=== PATIENT | female | born 1970 | race Caucasian/White ===

== ENCOUNTER 2017-11-30 13:18 | Observation (INO) | payer OTHER ==
[~2017-11-30] VITALS: Ht 160 cm; Wt 136.3 kg
[2017-11-30 13:24] VITALS: Ht 160 cm; Wt 136.3 kg
[2017-11-30 14:58] LABS: BASOPHIL % 0.2 % (0-2); PLATELET COUNT 273 x10^3mcL (130-400); RED CELL DISTRIBUTION WIDTH 14.5 % (11.5-14.5)
[2017-11-30 15:01] LABS: CALCIUM 8.5 mg/dL (8.5-10.1); CARBON DIOXIDE 27.2 mmol/L (21-32); CHLORIDE SERUM 98 mmol/L (98-107); CREATININE SERUM 0.7 mg/dL (0.6-1.0); GFR1 > 60 mL/min; GLUCOSE SERUM 91 mg/dL (74-106); SODIUM SERUM 136 mmol/L (136-145)
[2017-11-30 15:06] LABS: ALKALINE PHOSPHATASE 82 U/L (46-116); ALT/SGPT 19 U/L (14-59); AST/SGOT 13 U/L (15-37); BILIRUBIN TOTAL 0.4 mg/dL (0.20-1.00); TOTAL PROTEIN, SERUM 7.7 g/dL (6.4-8.2)
[2017-11-30 15:07] LABS: ALBUMIN 2.6 g/dL (3.4-5.0)
[2017-11-30 15:51] LABS: CREATINE KINASE 21 U/L (26-192)
[2017-11-30 16:19] LABS: CK-MB < 0.5 ng/mL (0-3.6)
[2017-11-30 17:10] LABS: microscopic required? YES; urine erythrocyte 1+ (NEGATIVE)
[2017-11-30] MEDS ORDERED: CARVEDILOL3.125 M1 PO (18:09)
[2017-11-30] MEDS ORDERED: METFORMIN HCL850 MG PO (18:09)
[2017-11-30] MEDS ORDERED: CENTRUM WOMEN1 EACH PO (18:10)
[2017-11-30] MEDS ORDERED: ASPIR 8181 MG PO (18:10)
[2017-11-30] MEDS ORDERED: INVOKANA300 MG PO (18:11)
[2017-11-30] MEDS ORDERED: COZAAR100 MG PO (18:11)
[2017-11-30] MEDS ORDERED: NOR10 PO (18:11)
[2017-11-30] MEDS ORDERED: RELION HUMUL100 U/M2 IJ (18:12)
[2017-11-30 18:38] LABS: MAGNESIUM 2.3 mg/dL (1.8-2.4); PHOSPHOROUS 3.7 mg/dL (2.5-4.9)
[2017-11-30 18:40] LABS: AMPHETAMINE QUAL UR NONE DETECTED (See below)
[2017-11-30] MEDS ORDERED: LEVEMIR100 U/M1 SQ (18:51)
[2017-11-30] MEDS ORDERED: VICTOZA6 MG/M1 SQ (18:52)
[2017-11-30 18:53] LABS: T3 TOTAL 0.74 ng/mL
[2017-11-30 19:02] LABS: FREE T4 1.19 ng/dL (0.76-1.46); FREE THYROXINE INDEX 2.1 ug/dL (1.4-4.5); T4(THYROXINE) 5.8 ug/dL (4.7-13.3)
[2017-11-30 19:30] LABS: TOTAL IRON BINDING CAPACITY 245 ug/dL (250-450)
[2017-11-30 19:35] LABS: IRON 30 ug/dL (50-170); RED BLOOD CELLS 3.27 M/mm3 (4.10-5.10)
[2017-11-30 22:24] VITALS: BP 127/73
[2017-11-30 22:42] VITALS: BP 149/71
[2017-12-01 00:47] VITALS: BP 149/71
[2017-12-01 06:14] VITALS: BP 124/59
[2017-12-01 06:20] LABS: PLATELET COUNT 245 x10^3mcL (130-400); RED CELL DISTRIBUTION WIDTH 14.2 % (11.5-14.5)
[2017-12-01 06:41] LABS: CALCIUM 8.5 mg/dL (8.5-10.1); CARBON DIOXIDE 23.5 mmol/L (21-32); CHLORIDE SERUM 102 mmol/L (98-107); CREATININE SERUM 0.6 mg/dL (0.6-1.0); GFR1 > 60 mL/min; GLUCOSE SERUM 92 mg/dL (74-106); MAGNESIUM 2.1 mg/dL (1.8-2.4); PHOSPHOROUS 3.1 mg/dL (2.5-4.9); POTASSIUM SERUM 3.5 mmol/L (3.5-5.1); SODIUM SERUM 139 mmol/L (136-145)
[2017-12-01 06:45] LABS: CHOLESTEROL 111 mg/dL (<200); CHOLESTEROL/HDL RATIO 11.1; HDL CHOLESTEROL 10 mg/dL (40-60); TRIGLYCERIDES 220 mg/dL (<150)
[2017-12-01 08:42] VITALS: BP 143/77
[2017-12-01 09:26] LABS: BAND NEUTROPHIL 4 % (0-10); BASOPHIL 0 % (0-2); MONOCYTE 3 % (0-7); SEGMENTED NEUTROPHILS 65 % (37-75)
[2017-12-01 09:28] LABS: PLATELET MORPHOLOGY PLATELETS NORMAL; rbc morphology (normal/abnorm) ABNORMAL (NORMAL)
[2017-12-01 13:10] VITALS: BP 127/67
[2017-12-01] MEDS ORDERED: LEVAQUIN750 MG PO (16:36)
[2017-12-01] MEDS ORDERED: CLEOCIN HCL300 MG PO (16:36)
[2017-12-01] MEDS ORDERED: LAC PO (16:37)
[2017-12-01 16:48] VITALS: BP 127/67
[2017-12-01 17:00] VITALS: BP 140/69
== END 2017-12-01 18:05 | disposition home or self-care (01) | DRG 177 ==
LOC: ED 13:18 → DU 17:54
PROVIDERS: Emergency Medicine; Family Medicine
DX: J69.0 Pneumonitis due to inhalation of food and vomit (principal); J96.01 Acute respiratory failure with hypoxia; N17.0 Acute kidney failure with tubular necrosis; E43 Unspecified severe protein-calorie malnutrition; Z68.43 Body mass index [BMI] 50.0-59.9, adult; E66.01 Morbid (severe) obesity due to excess calories; I10 Essential (primary) hypertension; E11.65 Type 2 diabetes mellitus with hyperglycemia; E11.51 Type 2 diabetes mellitus with diabetic peripheral angiopathy without gangrene; R82.4 Acetonuria; D64.9 Anemia, unspecified; Z79.4 Long term (current) use of insulin; Z79.82 Long term (current) use of aspirin; Z87.891 Personal history of nicotine dependence
CPT/HCPCS: 36600; 82962; 83880; 84439; 86788; 86789; 87804; G0378; J0456; J0696; J1644; J1815; J1956; J3490; J7030; J7050; Q0092; Q9967

== ENCOUNTER 2018-03-06 10:51 | Inpatient (IN) | payer OTHER ==
[~2018-03-06] VITALS: Ht 160 cm; Wt 134.4 kg
[~2018-03-06 10:51] MED LIST: ASPIR 8181 MG PO; CARVEDILOL3.125 M1 PO; CENTRUM WOMEN1 EACH PO; CLEOCIN HCL300 MG PO; COZAAR100 MG PO; INVOKANA300 MG PO; LAC PO; LEVAQUIN750 MG PO; LEVEMIR100 U/M1 SQ; METFORMIN HCL850 MG PO; NOR10 PO; RELION HUMUL100 U/M2 IJ; VICTOZA6 MG/M1 SQ
[2018-03-06 10:55] VITALS: Ht 160 cm; Wt 134.4 kg
[2018-03-06 12:03] LABS: CALCIUM 8.5 mg/dL (8.5-10.1); CARBON DIOXIDE 25.2 mmol/L (21-32); CHLORIDE SERUM 101 mmol/L (98-107); CREATININE SERUM 0.7 mg/dL (0.6-1.0); GFR1 > 60 mL/min; GLUCOSE SERUM 152 mg/dL (74-106); POTASSIUM SERUM 4.1 mmol/L (3.5-5.1); SODIUM SERUM 137 mmol/L (136-145)
[2018-03-06 12:08] LABS: ALBUMIN 3.7 g/dL (3.4-5.0); ALKALINE PHOSPHATASE 52 U/L (46-116); ALT/SGPT 22 U/L (14-59); AST/SGOT 20 U/L (15-37); BILIRUBIN TOTAL 0.8 mg/dL (0.20-1.00)
[2018-03-06 12:15] LABS: PLATELET COUNT 71 x10^3mcL (130-400); RED CELL DISTRIBUTION WIDTH 15.3 % (11.5-14.5)
[2018-03-06 12:18] LABS: TOTAL PROTEIN, SERUM 8.4 g/dL (6.4-8.2)
[2018-03-06] MEDS ORDERED: NOR5 PO (15:34)
[2018-03-06] MEDS ORDERED: VICTOZA6 MG/M1 SC (15:38)
[2018-03-06] MEDS ORDERED: TOUJEO MAX300 UNIT/1 SQ (15:38)
[2018-03-06 15:43] LABS: SEGMENTED NEUTROPHILS 8 % (37-75)
[2018-03-06 15:44] LABS: BAND NEUTROPHIL 3 % (0-10)
[2018-03-06 15:47] LABS: ATYPICAL LYMPH 28 %; MONOCYTE 28 % (0-7); MYELOCYTE 1 % (0-2)
[2018-03-06 15:48] LABS: PATH REVIEW for HEMA YES; PLATELET MORPHOLOGY PLATELETS DECREASED; rbc morphology (normal/abnorm) ABNORMAL (NORMAL)
[2018-03-06 16:07] VITALS: BP 162/82
[2018-03-06 19:00] VITALS: BP 146/82
[2018-03-06 21:13] VITALS: BP 107/65
[2018-03-07 05:43] VITALS: BP 126/65
[2018-03-07 06:27] LABS: ALKALINE PHOSPHATASE 45 U/L (46-116); ALT/SGPT 22 U/L (14-59); AST/SGOT 20 U/L (15-37); BILIRUBIN TOTAL 0.61 mg/dL (0.20-1.00); CALCIUM 8.2 mg/dL (8.5-10.1); CARBON DIOXIDE 25.1 mmol/L (21-32); CHLORIDE SERUM 104 mmol/L (98-107); CREATININE SERUM 0.6 mg/dL (0.6-1.0); GFR1 > 60 mL/min; GLUCOSE SERUM 116 mg/dL (74-106); POTASSIUM SERUM 3.5 mmol/L (3.5-5.1); SODIUM SERUM 139 mmol/L (136-145); TOTAL PROTEIN, SERUM 7.5 g/dL (6.4-8.2)
[2018-03-07 06:40] LABS: ALBUMIN 3.2 g/dL (3.4-5.0)
[2018-03-07 08:31] LABS: PLATELET COUNT 53 x10^3mcL (130-400); RED CELL DISTRIBUTION WIDTH 15.4 % (11.5-14.5)
[2018-03-07 09:26] VITALS: BP 110/58
[2018-03-07 11:31] LABS: IRON 116 ug/dL (50-170); TOTAL IRON BINDING CAPACITY 348 ug/dL (250-450)
[2018-03-07 12:13] LABS: SEGMENTED NEUTROPHILS 7 % (37-75)
[2018-03-07 12:16] LABS: ATYPICAL LYMPH 25 %
[2018-03-07 12:18] LABS: BAND NEUTROPHIL 3 % (0-10)
[2018-03-07 12:19] LABS: MONOCYTE 32 % (0-7); MYELOCYTE 2 % (0-2)
[2018-03-07 12:20] LABS: rbc morphology (normal/abnorm) ABNORMAL (NORMAL)
[2018-03-07 12:21] LABS: PLATELET MORPHOLOGY PLATELETS DECREASED
[2018-03-07 13:41] VITALS: BP 114/64
[2018-03-07 14:07] VITALS: BP 114/64
[2018-03-07 17:26] VITALS: BP 118/63
[2018-03-07 21:02] VITALS: BP 140/62
[2018-03-08 05:14] VITALS: BP 131/70
[2018-03-08 06:55] LABS: ALKALINE PHOSPHATASE 47 U/L (46-116); ALT/SGPT 20 U/L (14-59); AST/SGOT 15 U/L (15-37); BILIRUBIN TOTAL 0.6 mg/dL (0.20-1.00); CALCIUM 8.6 mg/dL (8.5-10.1); CARBON DIOXIDE 24.2 mmol/L (21-32); CHLORIDE SERUM 101 mmol/L (98-107); CREATININE SERUM 0.5 mg/dL (0.6-1.0); GFR1 > 60 mL/min; GLUCOSE SERUM 139 mg/dL (74-106); POTASSIUM SERUM 3.4 mmol/L (3.5-5.1); SODIUM SERUM 136 mmol/L (136-145); TOTAL PROTEIN, SERUM 7.6 g/dL (6.4-8.2)
[2018-03-08 06:57] LABS: ALBUMIN 3.3 g/dL (3.4-5.0); PLATELET COUNT 52 x10^3mcL (130-400); RED CELL DISTRIBUTION WIDTH 15.4 % (11.5-14.5)
[2018-03-08 08:30] VITALS: BP 124/63
[2018-03-08 12:06] LABS: ATYPICAL LYMPH 20 %; BAND NEUTROPHIL 0 % (0-10); BASOPHIL 0 % (0-2); MONOCYTE 12 % (0-7); SEGMENTED NEUTROPHILS 12 % (37-75); rbc morphology (normal/abnorm) ABNORMAL (NORMAL)
[2018-03-08 12:07] LABS: PLATELET MORPHOLOGY PLATELETS DECREASED
[2018-03-08 13:20] VITALS: BP 131/71
== END 2018-03-08 15:53 | disposition short-term general hospital (02) | DRG 808 ==
LOC: ED 10:51 → DU 15:26 → EDBEDREQ 15:27 → DU 16:04
PROVIDERS: Emergency Medicine; Internal Medicine; Internal Medicine Medical Oncology
DX: D61.818 Other pancytopenia (principal); J18.9 Pneumonia, unspecified organism; Z68.43 Body mass index [BMI] 50.0-59.9, adult; E11.9 Type 2 diabetes mellitus without complications; I10 Essential (primary) hypertension; E66.01 Morbid (severe) obesity due to excess calories; Z79.4 Long term (current) use of insulin; Z87.891 Personal history of nicotine dependence
CPT/HCPCS: 36600; 82962; 83880; 85060; 85378; J0696; J1650; J7040; Q0092; Q9967